=== PATIENT | male | born 2000 | race Caucasian/White ===

== ENCOUNTER 2024-03-18 04:23 | Emergency (ER) | payer MEDICAID ==
[~2024-03-18] VITALS: Ht 170.2 cm; Wt 105.0 kg
[2024-03-18 04:25] VITALS: O2SAT 97
[2024-03-18] MEDS: METOCLOPRAMIDE HCL 10MG/2ML VIAL IV ONE (05:10)
[2024-03-18] MEDS: SODIUM CHLORIDE 0.9% 1,000 ML IV ONE (05:10)
[2024-03-18] MEDS: LEVETIRACETAM 1000MG PREMIX 100 ML IV ONE (05:10)
[2024-03-18 05:19] LABS: CHLORIDE 105 mEq/L (98-107); SODIUM 138 mEq/L (136-145)
[2024-03-18 05:20] LABS: CALCIUM 8.8 mg/dL (8.7-10.4); CARBON DIOXIDE 23 mEq/L (21-32)
[2024-03-18 05:25] LABS: GLUCOSE 117 mg/dL (70-105); UREA NITROGEN BLOOD 14 mg/dL (9-23)
[2024-03-18 05:31] LABS: BASOPHILS % 0.2 % (0.0-2.0); EOSINOPHILS % 3.4 % (0.0-5.0); HEMATOCRIT. 45.7 % (42.0-52.0); HEMOGLOBIN. 15.2 g/dL (14.0-18.0); LYMPHOCYTES % 14.1 % (20.0-50.0); MEAN CORPUSCULAR HEMOGLOBIN 28.5 pg (28.0-32.0); MEAN CORPUSCULAR HGB CONC 33.2 g/dL (31.0-37.0); MEAN CORPUSCULAR VOLUME 85.9 fL (80.0-94.0); MONOCYTES % 6.5 % (2.0-8.0); NEUTROPHILS % 75.8 % (40.0-76.0); PLATELET 248 x1000/uL (130-400); RED BLOOD CELL COUNT 5.32 mill/uL (4.7-6.1); RED CELL DISTRIBUTION WIDTH 13.9 % (11.6-14.6); WHITE BLOOD COUNT 13.2 x1000/uL (4.5-11.0)
[2024-03-18 05:35] LABS: ETHANOL BLOOD < 10 mg/dL (<10)
[2024-03-18] MEDS ORDERED: LACT1CAP68 MT (06:58)
[2024-03-18 07:00] VITALS: BP 123/60; PULSE 106; RESP 20; TEMP 37.00296; O2SAT 97
[2024-03-18] MEDS ORDERED: FAMO-135 MT (23:44)
== END 2024-03-18 07:12 | disposition home or self-care (01) ==
LOC: ER 04:23
DX: G40.909 Epilepsy, unspecified, not intractable, without status epilepticus (principal); K52.9 Noninfective gastroenteritis and colitis, unspecified; F12.10 Cannabis abuse, uncomplicated
CPT/HCPCS: 80048; 80320; 82962; 85025; 36415; 96365; 96375; 99284; J1953; J2765; J7030; Z7610; G0480

== ENCOUNTER 2024-03-18 18:28 | Emergency (ER) | payer MEDICAID ==
[~2024-03-18] VITALS: Ht 167.6 cm; Wt 109.0 kg
[~2024-03-18 18:28] MED LIST: LACT1CAP68 MT
[2024-03-18 18:32] VITALS: O2SAT 98
[2024-03-18 20:44] LABS: BASOPHILS % 0.2 % (0.0-2.0); EOSINOPHILS % 1.1 % (0.0-5.0); HEMATOCRIT. 44.7 % (42.0-52.0); HEMOGLOBIN. 14.9 g/dL (14.0-18.0); LYMPHOCYTES % 16.3 % (20.0-50.0); MEAN CORPUSCULAR HEMOGLOBIN 28.7 pg (28.0-32.0); MEAN CORPUSCULAR HGB CONC 33.4 g/dL (31.0-37.0); MEAN CORPUSCULAR VOLUME 85.8 fL (80.0-94.0); MEAN PLATELET VOLUME 9.7 fl (7.4-10.4); MONOCYTES % 7.7 % (2.0-8.0); NEUTROPHILS % 74.7 % (40.0-76.0); PLATELET 259 x1000/uL (130-400); RED CELL DISTRIBUTION WIDTH 13.7 % (11.6-14.6)
[2024-03-18 20:50] LABS: CHLORIDE 103 mEq/L (98-107); POTASSIUM 3.6 mEq/L (3.5-5.1); SODIUM 136 mEq/L (136-145)
[2024-03-18 20:51] LABS: CALCIUM 8.9 mg/dL (8.7-10.4); CARBON DIOXIDE 28 mEq/L (21-32)
[2024-03-18 20:56] LABS: CREATININE 0.9 mg/dL (0.6-1.3); GLUCOSE 98 mg/dL (70-105); UREA NITROGEN BLOOD 8 mg/dL (9-23)
[2024-03-18 22:22] LABS: ALANINE AMINOTRANSFERASE 18 IU/L (10-49); ALBUMIN 4.3 g/dL (3.2-4.8); ASPARTATE AMINOTRANSFERASE 35 IU/L (<34); BILIRUBIN DIRECT 0.2 mg/dL (<=3.0)
[2024-03-18 22:23] LABS: BILIRUBIN TOTAL 0.7 mg/dL (0.1-1.0); PROTEIN TOTAL 7.9 g/dL (6.0-8.3)
[2024-03-18] MEDS: KETOROLAC 30MG/ML VIAL IM ONE (22:44)
[2024-03-18] MEDS: ONDANSETRON HCL 4MG/2ML INJ IM ONE (22:45)
[2024-03-18] MEDS: PANTOPRAZOLE 40MG DR TABLET PO ONE (22:45)
[2024-03-18] MEDS ORDERED: FAMO-135 MT (23:44)
[2024-03-19 00:01] VITALS: BP 136/70; PULSE 88; RESP 18; TEMP 37.16964; O2SAT 98
== END 2024-03-19 00:01 | disposition home or self-care (01) ==
LOC: ER 18:28
DX: B34.9 Viral infection, unspecified (principal); G40.909 Epilepsy, unspecified, not intractable, without status epilepticus; F12.10 Cannabis abuse, uncomplicated; Z88.0 Allergy status to penicillin
CPT/HCPCS: 99284; 80076; 80048; 83690; 85025; 36415; 96372; J1885; J2405